=== PATIENT | female | born 1980 | race Two or more races ===

== ENCOUNTER → 2016-04-28 | Outpatient (CLI) | payer BC ==
--- NOTE | 2016-04-28 13:20 | RAD ---
DATE: 04/28/2016 EXAM: DIGITAL DIAGNOSTIC BILATERAL, BREAST RIGHT HISTORY: Lump right breast COMPARISON: 01/06/2012 This study was interpreted with the benefit of Computerized Aided Detection (CAD). FINDINGS: The breast parenchyma is dense, which could reduce the sensitivity of mammography. Breast parenchyma level density D.. The area of palpable concern was marked. Note is made that the area of concern is similar to the previous exam. A dominant mass in either breast is not seen on mammography. No suspect calcifications are seen. A few benign-appearing calcifications are noted in the left breast. Targeted ultrasound to the area of concern in the right breast was performed as well as an additional screening examination of the right breast. At the level of concern no abnormality is seen. (In addition to images provided by the technologist a real-time examination was performed by me) there is, at the 12:00 position 2 cm from the nipple a well-defined hypoechoic 5 mm mass which has benign characteristics. At the 8:00 position of the right breast, 4 cm from the nipple there is a somewhat complex lobulated, nonshadowing, likely cystic mass measuring approximately 1.3 cm. This likely reflects a group of cysts. Follow-up ultrasound imaging is suggested in 6 months to document stability of these ultrasound findings. IMPRESSION: Very dense breasts. No definite significant finding seen on mammography Probable benign findings on ultrasound examination of the breasts. BI-RADS CATEGORY: 3 PROBABLE BENIGN FINDING(S-SHORT INTERVAL FOLLOW-UP SUGGESTED RECOMMENDED FOLLOW-UP: 6M 6 MONTH FOLLOW-UP PQRS compliance statement: Patient information was entered into a reminder system with a target due date 10/25/2016 for the next mammogram. Mammography is a sensitive method for finding small breast cancers, but it does not detect them all and is not a substitute for careful clinical examination. A negative mammogram does not negate a clinically suspicious finding and should not result in delay in biopsying a clinically suspicious abnormality. "Our facility is accredited by the [employer] Mammography [employer]."
== END | disposition home or self-care (01) ==
LOC: MAMMO 12:03
PROVIDERS: ATTEND Physician Assistant Surgical
DX: N63 Unspecified lump in breast (principal)
CPT/HCPCS: 76641; G0204

== ENCOUNTER → 2016-12-24 | Outpatient (CLI) | payer BC ==
--- NOTE | 2016-12-24 15:07 | RAD ---
Exam performed: Right breast ultrasound. History: Follow-up abnormal previous mammogram and right breast ultrasound. Date of service: 01/12/17. Comparison: Diagnostic bilateral mammogram and right breast ultrasound from 04/28/16 and bilateral breast ultrasound from 01/06/12. Discussion: Target sonographic evaluation of the right breast is performed and images are obtained. At 12:00 position, 2 cm from the nipple, a well-defined ovoid hypoechoic 5.2 x 2.0 mm. There is some vascularity. This could possibly represent a small lymph node or fibroadenoma. A second multilobulated cystic lesion was previously seen at 8:00 position, 4 cm from the nipple. This is no longer visualized. Dense fibroglandular tissues are seen. Impression: Benign-appearing 5.2 x 2.0 mm ovoid by the tolerated nodule at 12:00 position, 2 cm from nipple redemonstrated possibly a lymph node or fibroadenoma. Complex lobulated multiseptated cystic lesion seen previously at 8:00 is not seen on today's study. BI-RADS 2. Benign findings Patient may return for annual screening mammography in one year
== END | disposition home or self-care (01) ==
LOC: MAMMO 12:48
PROVIDERS: ATTEND Internal Medicine
DX: R92.8 Other abnormal and inconclusive findings on diagnostic imaging of breast (principal)
CPT/HCPCS: 76641